=== PATIENT | male | born 1995 | race African-American/Black ===

== ENCOUNTER 2017-06-25 00:38 | Emergency (ER) | payer SELFPAY ==
[2017-06-25 00:48] VITALS: BP 116/77; PULSE 93; RESP 16; TEMP 97.9; O2SAT 95
--- NOTE | 2017-06-25 00:56 | EDPHY ---
H & P Time Seen by Provider: 06/25/17 00:44 HPI/ROS: Chief Complaint: Skin rash HPI: 22-year-old male presenting with diffuse skin rash for the last week or so. Patient states that started about a week after he had sexual relations with girl. Patient states he is having bumps on his chest on his scrotum has on his arms and legs. He is concerned that he may have contracted herpes. Denies any fevers or chills. Did not have any initial lesions or bumps in that he noted. The patient states that his sexual relations for about 2 weeks ago and symptoms developed about a week later. Does have a history of gonorrhea in the past and has been treated for that. No urethral discharge. No headache. No nausea or vomiting. No recent travel. No changes in soaps. No other known exposures. ROS: 10 point Review of Systems is negative except as noted in the HPI. PMH: Gonorrhea Social History: Positive smoking, occasional alcohol, no recreational drug use Family History: non-contributory Physical Exam: Gen: Awake, Alert, No Distress HEENT: Nose: no rhinorrhea Eyes: PERRLA, EOMI Mouth: Moist mucosa Neck: Supple, no JVD Chest: nontender, lungs clear to auscultation Heart: S1, S2 normal, no murmur Abd: Soft, non-tender, no guarding Genital: No rash, no discharge, no lymphadenopathy, no lesions Back: no CVA tenderness, no midline tenderness Ext: no edema, non-tender Skin: Patient has small pustules at the base of his hair follicles on his back , chest, upper arms. There are some lesions on his scrotum. There is no erythema. Is not tender. Is not warm to the touch. They are isolated at the base of the hair. Neuro: CN II-XII intact, Sensation grossly intact, Strength 5/5 in bilateral upper and lower extremities Home Medications: Medication Instructions Recorded Cephalexin [Keflex (*)] 500 mg PO Q6H #28 cap 06/25/17 Medical Decision Making ED Course/Re-evaluation: 22-year-old male presenting with small pustules at the bases here cells diffusely. They are all in the same development. Does not appear a to be varicella given all delusions same state. Patient is otherwise very well appearing. He does not have a history of a chancre or anything else to suggest secondary syphilis. Given the timeframe of the onset and we relations is unlikely as well. He is not appear toxic. Symptoms are consistent with folliculitis. Will treat him with oral Keflex. He does need further STD testing and follow-up. Will refer him to [facility] for this. [facility] also [facility]. He will complete his for some body aches, return for worsening. Departure - Departure Disposition: Home, Routine, Self-Care Clinical Impression: Folliculitis Condition: Good Instructions: Folliculitis (ED) Additional Instructions: Please take your full course of antibiotics. Follow up at [facility] for further evaluation and sexually transmitted infection testing. Referrals: [facility],. [Clinic] - As per Instructions Prescriptions: Cephalexin [Keflex (*)] 500 mg PO Q6H #28 cap
== END 2017-06-25 01:10 | disposition home or self-care (01) ==
LOC: CED 00:38
DX: L73.9 Follicular disorder, unspecified (principal); F17.200 Nicotine dependence, unspecified, uncomplicated